=== PATIENT | female | born 1990 | race Two or more races ===

== ENCOUNTER 2022-10-30 09:46 | Observation (INO) | payer MEDICAID ==
[~2022-10-30] VITALS: Ht 167.6 cm; Wt 111.1 kg
[2022-10-30] MEDS ORDERED: PREN-96 PO (11:38)
== END 2022-10-30 11:42 | disposition home or self-care (01) ==
LOC: LDRP 09:46
PROVIDERS: ADMIT Obstetrics & Gynecology; ATTEND Obstetrics & Gynecology
DX: O24.419 Gestational diabetes mellitus in pregnancy, unspecified control (principal); Z3A.30 30 weeks gestation of pregnancy
CPT/HCPCS: 76818; 82962; G0378; 59025; 81002; 82948; 94760